=== PATIENT | female | born 1990 | race Caucasian/White ===

== ENCOUNTER 2019-01-03 22:05 | Emergency (ER) | payer MEDICAID, OTHER ==
[~2019-01-03] VITALS: Ht 165.1 cm; Wt 74.3 kg
[~2019-01-03 22:05] MED LIST: BEN25 PO; BUTA1CAP38 PO; CALC600T5 PO; IBUP800T48 PO; MECL12.574 PO; METO10TA92 PO; NIFEdipine PO; PRENAT PO
[2019-01-03 22:51] VITALS: Ht 165.1 cm; Wt 74.3 kg
[2019-01-04] MEDS ORDERED: DIPHENHYDRAMINE 50 MG INJ IV ONE (00:30)
[2019-01-04] MEDS ORDERED: SOD CHLORIDE 0.9% 1,000 ML IV ONE (00:30)
[2019-01-04] MEDS ORDERED: METOCLOPRAMIDE 10 MG INJ IV ONE (00:30)
[2019-01-04 02:18] VITALS: BP 94/52; PULSE 53; RESP 18
== END 2019-01-04 02:18 | disposition home or self-care (01) ==
LOC: FTE 22:05
DX: G43.909 Migraine, unspecified, not intractable, without status migrainosus (principal); M54.5 Low back pain
CPT/HCPCS: 81003; 81025; 87086; 96374; 96375; J1200; J2765; J7030; Z7502